=== PATIENT | female | born 1950 | race Caucasian/White ===

== ENCOUNTER 2018-02-23 19:00 | Outpatient (CLI) | payer BC ==
[2011-09-05 06:58] VITALS: BMI 43.8
== END 2018-02-23 23:59 | disposition home or self-care (01) ==
LOC: D.MAMMO 19:00
DX: Z12.31 Encounter for screening mammogram for malignant neoplasm of breast (principal)

== ENCOUNTER 2019-03-22 09:00 | Outpatient (CLI) | payer MEDICARE ==
[2011-09-05 06:58] VITALS: BMI 43.8
== END 2019-03-22 10:00 | disposition home or self-care (01) ==
LOC: D.MAMMO 09:00
PROVIDERS: ATTEND Family Medicine
DX: Z12.31 Encounter for screening mammogram for malignant neoplasm of breast (principal)

== ENCOUNTER → 2019-04-24 08:00 | Outpatient (CLI) | payer MEDICARE ==
[2011-09-05 06:58] VITALS: BMI 43.8
== END | disposition home or self-care (01) ==
LOC: D.MAMMO 08:00
PROVIDERS: ATTEND Family Medicine
DX: R92.8 Other abnormal and inconclusive findings on diagnostic imaging of breast (principal)

== ENCOUNTER → 2019-05-16 08:00 | Outpatient (CLI) | payer MEDICARE, OTHER ==
[2011-09-05 06:58] VITALS: BMI 43.8
== END | disposition home or self-care (01) ==
LOC: D.MAMMO 08:00
PROVIDERS: ATTEND Family Medicine
DX: R92.8 Other abnormal and inconclusive findings on diagnostic imaging of breast (principal)

== ENCOUNTER → 2020-10-22 11:11 | Outpatient (CLI) | payer MEDICARE, OTHER ==
[2011-09-05 06:58] VITALS: BMI 43.8
--- NOTE | ~2020-10-22 | EC ---
PATIENT:JUSTICE BUSTAMANTE DATE OF SERVICE: 10/22/20 SEX: F MEDICAL RECORD: [id number] DATE OF : [birth year] LOCATION:[facility] AGE OF PATIENT: 70 ADMISSION DATE: 10/22/20 REFERRING PHYSICIAN: INTERPRETING PHYSICIAN: ROBE BLANKENSHIP MD ECHOCARDIOGRAM REPORT ECHO CHARGES 4 ECHO COMPLETE Date: 10/22/20 CLINICAL DIAGNOSIS: CAD/HEART MURMUR HX OF CABG ECHOCARDIOGRAPHIC MEASUREMENTS (adult normal given) AC root (d.<3.7cm) 3.0 cm LV Septum d (<1.2 cm> 1.1 cm Valve Excursion 1.4 cm LV Septum (systole) 1.3 cm Left Atria (s.<4.0cm> 3.1 cm LVPW d(<1.2cm) 1.1 cm RV (d.<2.3cm) 2.5 cm LVPW (sytole) 1.6 cm LV diastole(<5.6CM) 5.5 cm MV E-F(>70mm/sec) cm LV systole 3.3 cm LVOT Diameter 1.9 cm MV exc.(>10mm) 1.6 cm Est.ejection fraction (50-75%) % DOPPLER: LVIT cm/sec A 102.0cm/sec E 64.0 cm/sec LA cm/sec RVSP 24 mmHg LVOT 110 cm/sec AOP1/2T m/s Asc. Ao 118 cm/sec RVOT cm/sec RA cm/sec PA 92 cm/sec AV Gradient Peak 5.59 mmHg AV Mean 3.09 mmHg AV Area 2.6 cm MV Gradient Peak 5.58 mmHg MV Mean 1.89 mmHg MV Area cm COMMENTS: Take Away Attendant: 2 ALF [facility] Medical Art Therapist: 3 Dr. Parekh TAPE# PACS Pericardial Effusion N DATE OF SERVICE: Adequate 2D, color flow imaging, spectral Doppler, and M-Mode. No LVH. LV internal dimensions are normal. Wall motion normal. EF greater than or equal to 55%. Aortic valve is tricuspid. No evidence of stenosis by Doppler interrogation. Mild AI by color flow imaging. Left atrium is normal at 3.1 cm. Mitral valve shows no prolapse. Mild MR. Right-sided chambers are grossly normal. Mild TR. ECHOCARDIOGRAM REPORT [id number] JUSTICE BUSTAMANTE TRANSINT:[id number] Voice Confirmation ID: [id number] DOCUMENT ID: [id number] ROBE BLANKENSHIP MD CC: [id number] DICTATION DATE: 10/23/20 1056 IT TRAINER: 10/23/20 1213 DEP CLI 10/22/20 [place] [id number] [place] [id number]
== END | disposition home or self-care (01) ==
LOC: D.US 11:11
PROVIDERS: ATTEND Internal Medicine Interventional Cardiology
DX: I65.23 Occlusion and stenosis of bilateral carotid arteries (principal)